=== PATIENT | female | born 1995 | race Caucasian/White ===

== ENCOUNTER 2018-12-02 13:04 | Emergency (ER) | payer SELFPAY ==
[2018-12-02 13:25] VITALS: BP 128/65
--- NOTE | 2018-12-02 13:30 | Emergency Department Report ---
Blank Doc - Documentation Documentation: 23 y o female presents with lefty elbow and forearm pain s/p fall down 3 steps today no loc xr ordered ACC eval
[2018-12-02] MEDS ORDERED: IBUPROFEN PO ONE (13:45)
--- NOTE | 2018-12-02 13:45 | Emergency Department Report ---
Upper Extremity - HPI Chief Complaint: Extremity Injury, Upper Stated Complaint: LT ARM INJURY Time Seen by Provider: 12/02/18 13:22 Upper Extremity: Left Elbow, Left Forearm Occurred When: Today Mechanism: Fall Severity: mild Symptoms: Yes Pain with Movement, No Deformity, No Limited Range of Movement, No Numbness, No Weakness, No Swelling, No Bruising/Ecchymosis, No Laceration or Abrasion Other History: N is a 23-year-old female who presents with left elbow, forearm, upper arm pain. She landed on her left elbow after falling down 3 steps. No injuries. [id number] pain. Pain with motion in elbow and forearm. ED Review of Systems ROS: Stated complaint: LT ARM INJURY Other details as noted in HPI Constitutional: denies: fever, malaise Musculoskeletal: arthralgia, myalgia. denies: joint swelling Skin: denies: rash, lesions, change in color Neurological: denies: numbness, paresthesias ED Past Medical Hx - Past Medical History Previous Medical History?: No - Social History Smoking Status: Current Every Day Smoker Substance Use Type: Marijuana - Medications Home Medications: Home Medications Medication Instructions Recorded Confirmed Last Taken Type Ibuprofen [Motrin 800 MG tab] 800 mg PO Q8HR PRN #15 tablet 12/02/18 Unknown Rx Upper Extremity Exam - Exam General: Vital signs noted. No distress. Alert and acting appropriately. Head and Torso: No HEENT Abnormality Shoulder Exam: Yes Normal Range of Motion in Shoulder, No Shoulder Tenderness, No Clavicle Tenderness, No Shoulder Deformity Arm Exam: Yes Arm/Humerus Tenderness, No Arm Deformity Elbow: Yes Elbow Tenderness, Yes Normal Range of Motion in Elbow, No Elbow Deformity Forearm: Yes Forearm Tenderness, Yes Pain with Pronation, Yes Pain with Supination, No Forearm Deformity Wrist: Yes Normal ROM in Wrist, No Wrist Tenderness, No Wrist Deformity, No Snuffbox Tenderness, No Pain with Axial Thumb Compression Hand: Yes Normal ROM in Digit(s), No Hand Tenderness, No Hand Deformity, No Digit Tenderness ED Course Vital Signs 12/02/18 13:23 Temperature 98 F Pulse Rate 70 Respiratory 20 Rate Blood Pressure 128/65 O2 Sat by Pulse 99 Oximetry ED Medical Decision Making - Radiology Data Radiology results: report reviewed According to radiology report, no fracture of the elbow or forearm. On radiographs. - Medical Decision Making Fall causing left elbow, forearm pain. contusion, sprain left elbow/forearm: sling provided Iburofen script Critical care attestation.: If time is entered above; I have spent that time in minutes in the direct care of this critically ill patient, excluding procedure time. ED Disposition Clinical Impression: Sprain of left elbow, Contusion of left forearm Disposition: TO HOME OR SELFCARE Is pt being admited?: No Does the pt Need Aspirin: No Condition: Stable Instructions: Elbow Sprain (ED) Prescriptions: Ibuprofen [Motrin 800 MG tab] 800 mg PO Q8HR PRN #15 tablet PRN Reason: Pain , Severe (7-10) Referrals: PRIMARY CARE, [Primary Care Provider] - 3-5 Days ABHINAV LAKHANI MD [Staff Physician] - 3-5 Days
--- NOTE | 2018-12-02 14:17 | XRay Report ---
PROCEDURE: XR ELBOW 3+V LT, XR FOREARM LT TECHNIQUE: 3 views left elbow. 2 views left forearm. Combined dictation. HISTORY: fall/lt elbow pain COMPARISONS: None FINDINGS: Distal humerus is intact. No fat pad distention. Elbow demonstrates normal joint space. Normal alignm ent. The radius and ulna are intact without acute fracture or malalignment No soft tissue gas. No radiopaque foreign body. IMPRESSION: No acute fracture or malalignment. This document is electronically signed by Jaxson Gamez MD., December 02 2018 03:15:28 PM ET
== END 2018-12-02 14:42 | disposition home or self-care (01) ==
LOC: ED 13:04
DX: S53.402A Unspecified sprain of left elbow, initial encounter (principal); S50.12XA Contusion of left forearm, initial encounter; F17.200 Nicotine dependence, unspecified, uncomplicated; F12.10 Cannabis abuse, uncomplicated; Z88.6 Allergy status to analgesic agent; W10.9XXA Fall (on) (from) unspecified stairs and steps, initial encounter; Y93.89 Activity, other specified; Y92.89 Other specified places as the place of occurrence of the external cause; Y99.8 Other external cause status

== ENCOUNTER 2019-02-22 09:26 | Emergency (ER) | payer SELFPAY ==
[2019-02-22 09:39] VITALS: BP 116/59
[2019-02-22 09:50] LABS: Bilirubin,Urine NEG (Negative); Blood,Urine NEG (Negative); Color,Urine Yellow (Yellow); Mucus,Urine 1+ /HPF; Protein,Urine <15 mg/dL mg/dL (Negative); Urobilinogen,Urine < 2.0 mg/dL (<2.0)
[2019-02-22 09:59] LABS: HCG Qualitative,Urine Positive (Negative)
--- NOTE | 2019-02-22 10:09 | Emergency Department Report ---
ED Abdominal Pain HPI - General Chief Complaint: Abdominal Pain Stated Complaint: ABD PAIN/VOMITING Time Seen by Provider: 02/22/19 10:03 Source: patient Mode of arrival: Ambulatory Limitations: No Limitations - History of Present Illness Initial Comments: 23-year-old female presents to the emergency room for abdominal pain and nausea vomiting for 2 weeks. Patient states he has a possibility of being . Last menstrual period beginning of December. She is 2 para 1. Denies any bleeding vaginal discharge no dysuria. No past medical history takes no medications on a daily basis. Last vomiting yesterday no nausea at this time. Reports pain 6 out of 10. Onset/Timin -: week(s) Location: suprapubic Radiation: none Severity scale (0 -10): 6 Quality: cramping Consistency: intermittent Associated Symptoms: nausea, vomiting. denies: diarrhea, fever, constipation, dysuria, hematemesis - Related Data LMP Date: 01/02/19 Previous Rx's Medication Instructions Recorded Last Taken Type Ibuprofen [Motrin 800 MG tab] 800 mg PO Q8HR PRN #15 tablet 12/02/18 Unknown Rx Allergies Allergy/AdvReac Type Severity Reaction Status Date / Time morphine Allergy Rash Verified 12/02/18 13:06 ED Review of Systems ROS: Stated complaint: ABD PAIN/VOMITING Other details as noted in HPI ED Past Medical Hx - Past Medical History Previous Medical History?: No - Surgical History Past Surgical History?: Yes Additional Surgical History: C section - Social History Smoking Status: Never Smoker Substance Use Type: Marijuana - Medications Home Medications: Home Medications Medication Instructions Recorded Confirmed Last Taken Type Ibuprofen [Motrin 800 MG tab] 800 mg PO Q8HR PRN #15 tablet 12/02/18 Unknown Rx ED Physical Exam - General Limitations: No Limitations ED Course Vital Signs 02/22/19 09:31 Temperature 97.9 F Pulse Rate 78 Respiratory 16 Rate Blood Pressure 116/59 O2 Sat by Pulse 98 Oximetry Critical care attestation.: If time is entered above; I have spent that time in minutes in the direct care of this critically ill patient, excluding procedure time. ED Disposition Condition: Stable Instructions: Abdominal Pain (ED)
--- NOTE | 2019-02-25 14:09 | Ultrasound Report ---
OB ultrasound. 02/22/2019. HISTORY: . Pelvic pain. FINDINGS: Imaging was performed by transabdominally and endovaginally. The uterus measures 8.8 x 4 x 5.8 cm. The endometrial stripe is thickened measuring 1.9 cm. No intrauterine is identified. Right ovary measures 4.5 x 2.9 x 3.3 cm. Left ovary measures 2.8 x 1.4 x 2.1 cm. Both ovaries demonst rate flow. A complex lesion at the right ovary measures 2.6 x 1.2 cm. A small amount of free fluid is noted. IMPRESSION: 1. Thickened endometrial stripe. Negative for intrauterine . 2. Complex lesion right ovary. This is most likely a corpus luteum cyst. Correlation is recommended w ith beta-hCG levels. 3. Small amount of pelvic free fluid. Signer Name: Hayden Romero MD Signed: 02/22/2019 6:27 PM Workstation Name: [id number]
== END 2019-02-22 16:17 | disposition left against medical advice (07) ==
LOC: ED 09:26
DX: O20.8 Other hemorrhage in early pregnancy (principal); Z53.21 Procedure and treatment not carried out due to patient leaving prior to being seen by health care provider
CPT/HCPCS: 36415; 76801; 76802; 76817; 81001; 81025; 84702

== ENCOUNTER 2019-05-23 18:12 | Emergency (ER) | payer SELFPAY | END 2019-05-23 19:20 | disposition left against medical advice (07) | LOC: ED 18:12 | DX: O99.342 Other mental disorders complicating pregnancy, second trimester (principal); F32.9 Major depressive disorder, single episode, unspecified; F41.9 Anxiety disorder, unspecified; Z3A.18 18 weeks gestation of pregnancy; Z53.21 Procedure and treatment not carried out due to patient leaving prior to being seen by health care provider ==

== ENCOUNTER 2021-03-18 12:29 | Outpatient (CLI) | payer MEDICAID ==
[2021-03-18 14:33] VITALS: BP 114/56
--- NOTE | 2021-03-18 16:29 | Ultrasound Report ---
Limited OB Ultrasound Biophysical profile HISTORY: BPP/PLACENTA WELLBEING. TECHNIQUE: Grayscale and color imaging performed. COMPARISON: No recent comparison ultrasound available FINDINGS: There is a single viable intrauterine gestation with cephalic presentation. KENDRICK is 9 cm whi ch is normal. Placenta is positioned anteriorly and appears unremarkable. Heart rate is 162 bpm. On biophysical profile, the fetus received a score of 2 out of 2 for breathing, movement, posture/ton e, and KENDRICK. Total score was 8 out of 8. IMPRESSION: 1. Single viable intrauterine gestation as above. 2. Normal biophysical profile. Signer Name: Lake Gabriel MD Signed: 03/18/2021 4:25 PM Workstation Name: [id number]
[2021-03-18] MEDS ORDERED: LACTATED RINGERS 500 ML IV ONE (16:34)
== END 2021-03-18 18:09 | disposition home or self-care (01) ==
LOC: TRG 12:29 → APU 12:40 → TRG 18:09
PROVIDERS: ATTEND Obstetrics & Gynecology
DX: O26.893 Other specified pregnancy related conditions, third trimester (principal); Z3A.31 31 weeks gestation of pregnancy; W19.XXXA Unspecified fall, initial encounter
CPT/HCPCS: 59025; 76815; 76819

== ENCOUNTER 2021-08-16 13:56 | Emergency (ER) | payer MEDICAID ==
[2021-08-16 16:30] VITALS: BP 119/73
== END 2021-08-17 02:09 | disposition left against medical advice (07) ==
LOC: ED 13:56
DX: M79.604 Pain in right leg (principal); Z53.21 Procedure and treatment not carried out due to patient leaving prior to being seen by health care provider